=== PATIENT | female | born 1940 | race Caucasian/White ===

== ENCOUNTER → 2018-02-03 | Outpatient (CLI) | payer OTHER ==
[~2018-02-03] MED LIST: ALBU90OI61; AMLO5; ASCO500; ASPI81CH; ATEN50 PO; ATOR80; DOC250 PO; ERGO400; Glucophage Xr750 MG; HYDACE5 PO; IBUP800 PO; IRBE75; LEVSOD75 PO; LOVA40 PO; META800 PO; METF500 PO; METO50; NAPR220; PROBIOTIC1 EAC3; Reclast 55 MG/100 M
== END | disposition home or self-care (01) ==
LOC: LAB SHORT 15:54 → LAB EV 15:54
DX: E11.42 Type 2 diabetes mellitus with diabetic polyneuropathy (principal)
CPT/HCPCS: 82043

== ENCOUNTER → 2018-04-16 | Outpatient (CLI) | payer OTHER | END | disposition home or self-care (01) | LOC: LAB EV 18:30 → LAB SHORT 18:30 | DX: N39.0 Urinary tract infection, site not specified (principal) | CPT/HCPCS: 87077; 87086; 87186 ==

== ENCOUNTER → 2021-07-20 | Outpatient (CLI) | payer OTHER ==
[~2021-07-20] MED LIST changes: -ASPI81CH; +Aspirin EC81 MG PO
== END | disposition home or self-care (01) ==
LOC: LAB SHORT 17:18
DX: N39.0 Urinary tract infection, site not specified (principal)
CPT/HCPCS: 87077; 87086; 87186